=== PATIENT | female | born 1980 | race Caucasian/White ===

== ENCOUNTER 2023-09-07 06:20 | Inpatient (IN) | payer OTHER ==
[2023-09-07] MEDS: ELECTROLYTE-148 SOLN 500 ML IV ONE (06:45)
[2023-09-07 07:00] VITALS: BMI 35.2
[2023-09-07] MEDS: CITRIC ACID/SODIUM CITRATE 30 ML UNIT-DOSE CUP PO ONE (07:40)
[2023-09-07] MEDS: ELECTROLYTE-148 SOLN 1,000 ML IV SCH (07:45)
[2023-09-07] MEDS ORDERED: ceFAZolin SODIUM 1 GM VIAL ONE (08:02)
[2023-09-07] MEDS ORDERED: PHENYLEPHRINE HCL 10 MG/1 ML SINGLE DOSE VIAL ONE (08:02)
[2023-09-07] MEDS ORDERED: SODIUM CHLORIDE 0.9% P/F 10 ML VIAL IJ ONE (08:02)
[2023-09-07] MEDS ORDERED: ONDANSETRON 4 MG/2 ML VIAL ONE (08:40)
[2023-09-07] MEDS ORDERED: ACETAMINOPHEN 325 MG TABLET (FP) PO PRN (08:43)
[2023-09-07] MEDS ORDERED: OXYTOCIN 10 UNITS/ML VIAL ONE (09:23)
[2023-09-07] MEDS: METHYLERGONOVINE MALEATE 0.2 MG/1 ML AMP IM PRN (09:29)
[2023-09-07] MEDS ORDERED: MIDAZOLAM HCL 2 MG/2 ML SINGLE DOSE VIAL ONE (09:43)
[2023-09-07] MEDS ORDERED: KETOROLAC TROMETHAMINE 30 MG/1 ML VIAL ONE (09:44)
[2023-09-07] MEDS ORDERED: MISOPROSTOL 200 MCG TABLET ONE (10:17)
[2023-09-07] MEDS: MISOPROSTOL 200 MCG TABLET PR ONE (10:19)
[2023-09-07] MEDS ORDERED: OXYTOCIN 20 UNITS in 0.9% NS 20 UNIT/1,000 ML INFUS.BAG IV ONE (10:40)
[2023-09-07] MEDS: morphine SULFATE/PF 1 MG/2 ML (2cc Syringe - QUVA) EP ONE (10:57)
[2023-09-07] MEDS: PRENATAL VITAMINS W/ FOLIC ACID TABLET (FP) PO SCH (10:57)
[2023-09-07] MEDS: OXYTOCIN 20 UNITS in 0.9% NS 20 UNIT/1,000 ML INFUS.BAG IV SCH (11:15)
[2023-09-07] MEDS: IBUPROFEN 800 MG/8 ML IJ IVPB PRN (12:55)
[2023-09-07] MEDS: ONDANSETRON 4 MG/2 ML VIAL IVPUSH PRN (17:05)
[2023-09-07] MEDS ORDERED: oxyCODONE HCL 5 MG TABLET PO PRN ×2 (20:43)
[2023-09-07] MEDS: ACETAMINOPHEN 1000 MG/100 ML BAG IVPB PRN (23:58)
[2023-09-07] MEDS: SIMETHICONE 80 MG TAB.CHEW (FP) PO PRN (23:59)
[2023-09-08 07:39] LABS: BASO % 0.2 % (0-2.0); HEMATOCRIT 27.7 % (32.4-45.2); HEMOGLOBIN 9.1 GM/dL (10.7-15.3); LYMPH % 11.3 % (8-40); MCH 26.7 pg (25.7-33.7); MEAN CELL VOLUME 80.9 fl (80-96); MEAN PLT VOLUME 8.7 fl (7.5-11.1); MONO % 6.9 % (3.8-10.2); NEUT % 80.6 % (42.8-82.8); PLATELET COUNT 180 10^3/uL (134-434); RBC 3.43 M/mm3 (3.60-5.2); RDW 15.4 % (11.6-15.6); WHITE BLOOD COUNT 9.5 K/mm3 (4.0-10.0)
[2023-09-08] MEDS ORDERED: BISACODYL 10 MG SUPP.RECT RC PRN (08:43)
[2023-09-08] MEDS: FERROUS SO4 325 MG TABLET (FP) PO SCH (09:23)
[2023-09-08] MEDS ORDERED: ACETAMINOPHEN 325 MG TABLET (FP) PO PRN (09:42)
[2023-09-08] MEDS: ACETAMINOPHEN 325 MG TABLET (FP) PO PRN (16:20)
[2023-09-08] MEDS: SENNOSIDES/DOCUSATE COMBO (SENNA PLUS) TABLET (UD) PO PRN (20:32)
[2023-09-08] MEDS: IBUPROFEN 600 MG TABLET (FP) PO PRN (20:33)
[2023-09-09] MEDS ORDERED: [UNRECOGNIZED DRUG - REMARK] PO SCH (10:00)
[2023-09-09] MEDS: IBUPROFEN 600 MG TABLET (FP) PO PRN (11:16)
[2023-09-10 08:41] VITALS: BP 117/73; PULSE 74; RESP 20; TEMP 98.2
== END 2023-09-10 14:35 | disposition home or self-care (01) | DRG 540 ==
LOC: EDSEX → JLDR 06:20 → J3W 12:25
PROVIDERS: ADMIT Obstetrics & Gynecology; ATTEND Obstetrics & Gynecology
PROC: 10D00Z1 Extraction of Products of Conception, Low, Open Approach (ICD-10-PCS; principal; 2023-09-08)
DX: O34.211 Maternal care for low transverse scar from previous cesarean delivery (principal); O32.1XX0 Maternal care for breech presentation, not applicable or unspecified; O99.02 Anemia complicating childbirth; D64.9 Anemia, unspecified; O36.5930 Maternal care for other known or suspected poor fetal growth, third trimester, not applicable or unspecified; Z3A.38 38 weeks gestation of pregnancy; Z37.0 Single live birth
CPT/HCPCS: 36415; 80053; 85025; 85610; 85730; 86780; 86850; 86900; 86901; 87389; 88307-TC; J0131